=== PATIENT | male | born 1985 | race Caucasian/White ===

== ENCOUNTER → 2019-02-22 | Outpatient (CLI) | payer OTHER ==
--- NOTE | 2019-02-22 17:58 | Diagnostic Imaging Report ---
EXAMINATION: Left shoulder at 12:08 p.m. INDICATION: Chronic shoulder pain. Internal and external AP views were obtained. There are no prior studies available for comparison. FINDINGS: There is no fracture, dislocation, or acute bony abnormality evident. The glenohumeral and acromioclavicular joints are fairly well maintained. The soft tissues are unremarkable. IMPRESSION: 1. There is no evidence for an acute bony abnormality. 2. If there is clinical concern regarding injury to the rotator cuff or labrum, then MRI would be recommended for additional study. Dictated by: Dictated on workstation # [id number]
== END ==
LOC: RAD 11:45
PROVIDERS: ATTEND Pediatrics
DX: G89.29 Other chronic pain (principal); M25.512 Pain in left shoulder
CPT/HCPCS: 73030

== ENCOUNTER 2023-05-01 08:55 | Outpatient (CLI) | payer MEDICAID ==
[~2023-05-01] VITALS: Ht 190.5 cm; Wt 150.1 kg
[2023-05-01] MEDS ORDERED: BISO-3 PO (13:46)
[2023-05-01] MEDS ORDERED: METF-479 PO (13:46)
[2023-05-01] MEDS ORDERED: ARIP2TAB20 PO (13:46)
[2023-05-01] MEDS ORDERED: PROM25TA14 PO (13:46)
[2023-05-01] MEDS ORDERED: LISI40TA9 PO (13:46)
== END 2023-05-01 13:48 | disposition home or self-care (01) ==
LOC: PREOP 08:55
PROVIDERS: ATTEND Surgery
DX: Z01.818 Encounter for other preprocedural examination (principal)

== ENCOUNTER 2023-05-10 09:22 | Day surgery (SDC) | payer MEDICAID, OTHER ==
[2023-05-10] VITALS (10 sets, daily range): BP systolic 140–156; BP diastolic 72–99
[~2023-05-10] VITALS: Ht 190 cm; Wt 150.1 kg
[~2023-05-10 09:22] MED LIST: ARIP2TAB20 PO; BISO-3 PO; LISI40TA9 PO; METF-479 PO; PROM25TA14 PO
[2023-05-10] MEDS ORDERED: LIDOCAINE 2% w/EPI 1:100,000 20 ML VIAL ONE (09:55)
[2023-05-10] MEDS ORDERED: ceFAZolin INJECTION 3,000 MG in NS (IVPB) 100 ML 100 ML IV ONE (10:00)
[2023-05-10] MEDS: LACTATED RINGERS 1,000 ML 1,000 ML IV PRN ×2 (10:03→11:50)
[2023-05-10] MEDS ORDERED: ROCURONIUM 50 MG/5 ML VIAL IV ONE (11:08)
[2023-05-10] MEDS ORDERED: LIDOCAINE PF 2% 5 ML VIAL ONE (11:08)
[2023-05-10] MEDS ORDERED: proPOfol INJECTION 200 MG/20 ML VIAL IV ONE (11:08)
[2023-05-10] MEDS ORDERED: MIDAZOLAM INJ 2 MG/2 ML VIAL ONE (11:09)
[2023-05-10] MEDS ORDERED: fentaNYL INJECTION 100 MCG/2 ML VIAL ONE (11:09)
--- NOTE | 2023-05-10 11:35 | Progress Note-Pre Operative ---
Pre-Operative Progress Note Date of Available H&P: Apr 27, 2023 Date H&P Reviewed: May 10, 2023 Time H&P Reviewed: 11:28 History & Physical: H&P Reviewed, Patient Examed, No changes noted Pre-Operative Diagnosis: cholelithiasis/cholecystitis MALINDA KNAPP DO May 10, 2023 11:35
[2023-05-10] MEDS ORDERED: HYDROmorphone INJECTION 2 MG/ML VIAL ONE (12:30)
[2023-05-10] MEDS ORDERED: NEOSTIGMINE 1 MG/1ML 10 ML VIAL ONE (12:30)
[2023-05-10] MEDS ORDERED: GLYCOPYRROLATE INJ 0.2 MG/ML 2 ML VIAL ONE (12:30)
[2023-05-10] MEDS ORDERED: SEVOFLURANE (ULTANE) 15 ML INHAL SOLN ONE (12:30)
--- NOTE | 2023-05-10 12:36 | Progress Note-Post Operative ---
Post-Operative Progess Note Surgeon (s)/Booky (s) Surgeon MALINDA KNAPP DO Booky: Abhishek Pre-Operative Diagnosis cholelithiasis/cholecystitis Post-Operative Diagnosis Same plus Umbilical hernia and early right inguinal Procedure & Operative Findings Date of Procedure 05/10/23 Procedure Performed/Findings PROCEDURE: Laparoscopic cholecystectomy with intraoperative cholangiogram. COMPLICATIONS: None. PROCEDURE: The patient was taken to the operating suite and was prepped and draped in sterile fashion. A surgical pause was performed. Just superior to the umbilicus, a 12 mm incision was made. Dissection was taken down to the fascia, which was then scored and grasped with a Jose Antonio and the abdomen was then entered. An 0 Vicryl suture was placed in a [id number] fashion and a Oleary trocar was placed and secured. Pneumoperitoneum was achieved. A 5mm trochar place in the subxyphoid and 2 in the right upper quadrant. The gallbladder was then grasped at the fundus and elevated superiorly by Dr. Weiss. Then another grasper grabbed Chance's pouch and pulled in the infero-lateral direction. The cystic duct and cystic artery were then dissected out with blunt dissection. Clip was placed on the distal portion of the cystic duct which was then partially transected. An arrow catheter was inserted into the duct. The cholangiogram was then performed. No filling defects and contrast made its way into the duodenum. Catheter removed and clips were placed on proximal portion of the cystic duct and then the duct was then transected. Clips were placed along the proximal and distal portion of the cystic artery which was then transected. Hook cautery was used to dissect the gallbladder from the gallbladder fossa achieving hemostasis. The gallbladder was placed in an Endobag and removed through the 12 mm trocar site. The abdomen was then reinspected and saw an umbilical hernia and a very small right indirect inguinal hernia. Copious amounts of irrigation were used to irrigate the abdomen and there were no signs of active bleeding. Hemostasis had been achieved. The 12 mm fascial defect was then closed with 0 Vicryl suture that had been placed in a [id number] fashion. The abdomen was then desufflated, the trocars were removed. The abdomen was then washed and dried. The skin was then closed using 4-0 Monocryl in a subcuticular fashion. The abdomen was washed and dried and Skin Affix was place over incisions. Patient tolerated the procedure well without any complications and was taken to the recovery room in stable condition. Dr. Weiss also helped to make incisions, close incisions and identify anatomy. Anesthesia Type GET Estimated Blood Loss Estimated blood loss (mL): less than 10ml Specimens/Packing Specimens Removed GB and contents MALINDA KNAPP DO May 10, 2023 12:36
--- NOTE | 2023-05-10 12:58 | Anesthesia-General Post-Op ---
General Patient Condition Mental Status/LOC: Same as Preop Cardiovascular: Satisfactory Nausea/Vomiting: Absent Respiratory: Satisfactory Pain: Controlled Complications: Absent Post Op Complications Complications None Follow Up Care/Instructions Patient Instructions None needed. Anesthesia/Patient Condition Patient Condition Patient is doing well, no complaints, stable vital signs, no apparent adverse anesthesia problems. No complications reported per nursing. SIRISHA WHALEY CRNA May 10, 2023 12:58
[2023-05-10] MEDS ORDERED: ONDANSETRON INJECTION 4 MG/2 ML (SDV) IVP PRN (13:00)
[2023-05-10] MEDS ORDERED: fentaNYL INJECTION 100 MCG/2 ML VIAL IVP ONE (13:00)
[2023-05-10] MEDS ORDERED: HYDROmorphone INJECTION 2 MG/ML VIAL IV ONE (13:00)
[2023-05-10] MEDS ORDERED: ACHYD1T PO (13:52)
--- NOTE | 2023-05-10 13:53 | Discharge Inst-Surgical ---
Discharge Inst-Surgical Depart Medication/Instructions New, Converted or Re-Newed RX: Transmitted to Pharmacy Patient Instructions Follow up Appt: Make appointment for 1 week. [phone] Instructions: No lifting greater than 20 pounds. No strenuous activity. May shower in 24 hours, no tub bath or soaking. Use incentive spirometer at home as directed. No Smoking Skin/Wound Care: May remove bandages in am. You need to leave the Dermabond on incision it will fall off on it's own. Symptoms to Report: Appetite Changes, Extremity Discoloration, Numbness/Tingling, Swelling Increased, Bleeding Excessive, Eyesight Changes, Pain Increased, Urine Color Change, Constipation(Persistent), Fever over 101 degree F, Pain/Pressure in chest, Urinating Difficulty, Cough Up/Vomit Blood, Heart Beat Irreg/Pounding, Pain/Pressure in jaw, Cramps in feet or legs, Lightheadedness, Pain/Pressure in shoulder, Diarrhea(Persistent), Memory Changes Suddenly, Questions/Concerns, Weight gain consecutive days, Dizziness/Fainting, Nausea/Vomiting, Shortness of Breath, Weight gain over 2 pounds If questions or concerns contact your physician Or seek help at emergency department. Activity Activity as Tolerated: Yes Activity Instructions: Avoid Stress to Incision Driving Instructions: No Driving/Refer to Dr. Hill Discharge Diet: Avoid Fatty Foods, Low Fat/Low Cholesterol Diet for 24 Hours: No [employer] [place] [employer] Diet After 24 Hours: Clear Liquid if Nauseous If Any Problems/Questions/Issu: Contact Your Physician, Go to Emergency Room Skin/Wound Care Infection Signs and Symptoms: Increased Redness, Foul Odor of Wound, Increased Drainage, Skin Itchy or Has a Rash, Increased Swelling, Temperature Above 101 F Bathing Instructions: Shower Stitches/Gabbi/Dermabond Dis: Dermabond MALINDA KNAPP DO May 10, 2023 13:53
--- NOTE | 2023-05-10 14:51 | Diagnostic Imaging Report ---
Indication: Cholecystectomy. Intraoperative guidance. COMPARISON: None Total fluoroscopy time: 8 seconds Total number fluoroscopic and saved: 35 FINDINGS: Lower scapula guidance was provided during laparoscopic cholecystectomy. Images provided show contrast opacifying the intra and extrahepatic biliary ductal systems. No large intraluminal filling defect is seen. Contrast empties into the small bowel, as expected. Please note, interpreting radiologist was not present during the procedure. IMPRESSION: 1. Fluoroscopic guidance provided intraoperatively as above. Dictated by: Dictated on workstation # [id number]
== END 2023-05-10 15:48 | disposition home or self-care (01) ==
LOC: SDC 09:22
PROVIDERS: ATTEND Surgery
DX: K81.1 Chronic cholecystitis (principal); K42.9 Umbilical hernia without obstruction or gangrene; K40.90 Unilateral inguinal hernia, without obstruction or gangrene, not specified as recurrent; M62.08 Separation of muscle (nontraumatic), other site; G47.33 Obstructive sleep apnea (adult) (pediatric); Z87.891 Personal history of nicotine dependence
CPT/HCPCS: 76000; 82947; 87081